=== PATIENT | female | born 1960 | race Hispanic/Latino ===

== ENCOUNTER 2024-05-09 14:38 | Observation (INO) | payer OTHER ==
[2024-05-09 16:56] LABS: PT Prothrombin Time 12.2 SECONDS (9.4-12.5); Protime INR 1.11
[2024-05-09 17:01] LABS: ALT/SGPT 16 U/L (13-56); Absolute Eosinophils 0.2 K/uL (0-0.5); Absolute Lymphocytes (CBC) 1.3 K/uL (0.7-4.9); Absolute Monocytes 0.6 K/uL (0.1-1.3); Absolute Neutrophil 5.2 K/uL (1.8-8.0); Albumin 2.7 g/dL (3.4-5.0); Albumin/Globulin Ratio 0.8 (1.1-1.8); Alkaline Phosphatase 64 U/L (45-117); Anion Gap 8.1 mEq/L (5.0-15.0); BUN Blood Urea Nitrogen 22 mg/dL (7-18); Basophils % 0.4 % (0-1.3); Bicarbonate 20 mEq/L (21-32); Bilirubin Total 0.4 mg/dL (0.2-1.0); Eosinophils % 3.1 % (0-4.4); Globulin 3.4 g/dL (2.3-3.5); Glomerular Filtration Rate 52 ml/min (=/>90); Glucose Level 88 mg/dL (74-106); Hematocrit 28.4 % (36.0-45.0); Hemoglobin 9.3 g/dL (12.0-15.0); Lymphocytes % 18.2 % (15.3-44.8); MCH 30.2 pg (27.0-35.0); MCHC 32.8 g/dL (32.0-36.0); MCV 91.9 fL (80-100); MPV 8.2 fL (7.6-11.3); Monocytes % 8.6 % (3.3-12.3); NT PRO-BNP 4217 pg/mL (<125); Neutrophils % 69.7 % (41.7-73.7); Nucleated Red Blood Cells % 0.2 % (0-0); Platelets 138 thou/uL (152-406); Potassium 5.1 mEq/L (3.5-5.1); Protein, Total 6.1 g/dL (6.4-8.2); RBC Red Blood Cell Count 3.09 M/uL (3.86-4.86); Sodium Level 139 mEq/L (136-145); Troponin High Sensitivity 6.6 pg/mL (<58.9)
[2024-05-09 17:04] LABS: AST/SGOT < 10 U/L (15-37); Bilirubin Direct < 0.2 mg/dL (0-0.2); Bilirubin Indirect, Calculated 0.2 mg/dL (0.2-0.8)
--- NOTE | 2024-05-09 17:22 | RAD REPORT ---
EXAM DESCRIPTION: Silvia Single View05/09/2024 4:46 pm CLINICAL HISTORY: Chest pain COMPARISON: 2014 FINDINGS: The lungs appear clear of acute infiltrate. The heart is normal size IMPRESSION: No acute abnormalities displayed
--- NOTE | 2024-05-09 17:33 | RAD REPORT ---
EXAM DESCRIPTION: CT - Head Brain Wo Cont - 05/09/2024 5:05 pm CLINICAL HISTORY: Dizziness. Fall. COMPARISON: None TECHNIQUE: Computed axial tomography of the head was obtained. IV contrast was not requested. All CT scans are performed using dose optimization technique as appropriate and may include automated exposure control or mA/KV adjustment according to patient size. FINDINGS: An intracranial bleed is not seen The ventricles are normal in caliber No extra-axial fluid collection is noted. Right cervical Francis aneurysm repair. Artifact from the metal obscures portions of the brain. Ventricles are normal caliber. No extra-axial fluid collections seen. An acute intracranial bleed visualized. Fluid within the sinuses/ mastoids is not seen. IMPRESSION: No acute gross intracranial abnormality noted
--- NOTE | 2024-05-09 18:10 | EDPHYS ---
Physician Documentation [facility] Name: Leisa Duff Age: 64 yrs Sex: Female : 1960 Arrival Date: 05/09/2024 Time: 14:38 Bed 17 Private MD: ED Physician Rogelio Miller HPI: 05/09 17:11 This 64 yrs old Female presents to ER via EMS with complaints of Pain All Over.gb1 17:11 64-year-old female with she has pain all over her body. Patient states that she fell gb1 for the last 3 days she felt more dizzy and lightheaded she denies any head strike or loss of consciousness but she states that she feels more unsteady on her feet. She has a history of an aneurysm, diabetes and hypertension.. 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 - Infectious Disease History:: Denies. - Social history:: Smoking status: Patient denies any tobacco usage or history of. Exam: 17:11 Constitutional: This is a well developed, well nourished patient who is awake, alert, gb1 and in no acute distress. Head/Face: Normocephalic, atraumatic. Eyes: Pupils equal round and reactive to light, extra-ocular motions intact. Lids and lashes normal. Conjunctiva and sclera are non-icteric and not injected. Cornea within normal limits. Periorbital areas with no swelling, redness, or edema. ENT: Nares patent. No nasal discharge, no septal abnormalities noted. Tympanic membranes are normal and external auditory canals are clear. Oropharynx with no redness, swelling, or masses, exudates, or evidence of obstruction, uvula midline. Mucous membranes moist. Neck: Trachea midline, no thyromegaly or masses palpated, and no cervical lymphadenopathy. Supple, full range of motion without nuchal rigidity, or vertebral point tenderness. No Meningismus. Chest/axilla: Normal chest wall appearance and motion. Nontender with no deformity. No lesions are appreciated. Cardiovascular: Regular rate and rhythm with a normal S1 and S2. No gallops, murmurs, or rubs. Normal PMI, no JVD. No pulse deficits. Respiratory: Lungs have equal breath sounds bilaterally, clear to auscultation and percussion. No rales, rhonchi or wheezes noted. No increased work of breathing, no retractions or nasal flaring. Abdomen/GI: Soft, non-tender, with normal bowel sounds. No distension or tympany. No guarding or rebound. No evidence of tenderness throughout. Back: No spinal tenderness. No costovertebral tenderness. Full range of motion. Skin: Warm, dry with normal turgor. Normal color with no rashes, no lesions, and no evidence of cellulitis. MS/ Extremity: Pulses equal, no cyanosis. Neurovascular intact. Full, normal range of motion. Neuro: Awake and alert, GCS 15, oriented to person, place, time, and situation. Cranial nerves II-XII grossly intact. Motor strength 5/5 in all extremities. Sensory grossly intact. Cerebellar exam normal. Normal gait. Vital Signs: 14:59 BP 147 / 92; Pulse 76; Resp 18; Temp 97.9; Weight 68.04 kg; Height 5 ft. 2 in. ; Pain ll1 10/10; 16:06 BP 137 / 86; Pulse 70; Resp 16; Pulse Ox 99% on R/A; Pain 10/10; al5 16:30 BP 130 / 79; Pulse 72; Resp 16; Pulse Ox 100% on R/A; al5 17:00 BP 127 / 95; Pulse 67; Resp 17; Pulse Ox 100% on R/A; al5 18:00 BP 127 / 77; Pulse 70; Resp 18; Pulse Ox 98% on R/A; al5 18:30 BP 121 / 80; Pulse 70; Resp 18; Pulse Ox 99% on R/A; al5 19:33 BP 122 / 71; Pulse 67; Resp 18; Temp 98.3; Pulse Ox 97% ; Pain 9/10; rg5 21:44 BP 152 / 91; Pulse 72; Resp 18; Temp 98.3; Pulse Ox 96% on R/A; Pain 10/10; bm8 14:59 Body Mass Index 27.44 (68.04 kg, 157.48 cm) ll1 14:59 Pain Scale: Adult ll1 16:06 Pain Scale: Adult al5 19:33 Pain Scale: Adult rg5 21:44 Pain Scale: Adult bm8 [place] Coma Score: 19:33 Eye Response: spontaneous(4). Motor Response: obeys commands(6). Verbal Response: rg5 oriented(5). Total: 15. 21:44 Eye Response: spontaneous(4). Motor Response: obeys commands(6). Verbal Response: bm8 oriented(5). Total: 15. MDM: 15:53 Patient medically screened. gb1 17:11 Data reviewed: vital signs, nurses notes, lab test result(s), radiologic studies, CT gb1 scan. 18:09 ED course: 64-year-old female status post questionable near syncope versus gb1 syncope with collapse episodes x 3 over the last couple days. She has history of a aneurysm status post clipping coiled and diabetes with hypertension, CT brain is normal today.. Patient has a BNP today of greater than 4000 no signs of decompensated heart failure or pulmonary edema. She has a negative troponin and otherwise chest x-ray is negative for any focal infiltrates. I will admit her for observation for evaluation for cardiology consultation with consideration of her echocardiogram.. 05/09 16:26 Order name: Basic Metabolic Panel; Complete Time: 17:12 05/09 16:26 Order name: CBC with Diff; Complete Time: 17:03 [facility] 05/09 16:26 Order name: LFT's; Complete Time: 17:12 [facility] 05/09 16:26 Order name: NT PRO-BNP; Complete Time: 17:12 05/09 16:26 Order name: PT-INR; Complete Time: 17:03 05/09 16:26 Order name: Troponin HS; Complete Time: 17:12 05/09 16:48 Order name: Glucose, Ancillary Testing; Complete Time: 17:03 [facility] 05/09 17:03 Order name: UDS [facility] 05/09 17:03 Order name: Urinalysis W/Microscopic 05/09 18:40 Order name: Urinalysis w/ reflexes [facility] 05/09 18:40 Order name: CBC with Automated Diff [facility] 05/09 18:40 Order name: CBC with Automated Diff [facility] 05/09 18:40 Order name: Comprehensive Metabolic Panel [facility] 05/09 18:40 Order name: Comprehensive Metabolic Panel [facility] 05/09 18:40 Order name: Troponin High Sensitivity [facility] 05/09 18:40 Order name: Troponin High Sensitivity [facility] 05/09 18:40 Order name: Troponin High Sensitivity [facility] 05/09 18:40 Order name: Troponin High Sensitivity [facility] 05/09 16:26 Order name: XRAY Chest (1 view); Complete Time: 17:37 gb1 05/09 16:27 Order name: CT Head Brain wo Cont; Complete Time: 17:37 gb1 05/09 18:43 Order name: Echo with Doppler [facility] 05/09 16:26 Order name: Cardiac monitoring; Complete Time: 16:56 gb1 05/09 16:26 Order name: EKG - Nurse/Tech; Complete Time: 18:14 gb1 05/09 16:26 Order name: IV Saline Lock; Complete Time: 16:56 gb1 05/09 16:26 Order name: Labs collected and sent; Complete Time: 16:56 gb1 05/09 16:26 Order name: O2 Per Protocol; Complete Time: 16:56 1 05/09 16:26 Order name: O2 Sat Monitoring; Complete Time: 16:56 gb Administered Medications: 18:43 Drug: Furosemide IVP 40 mg IVP once; give over 2 minutes Route: IVP; Site: right al5 antecubital; 19:18 Follow up: Response: No adverse reaction al5 Disposition Summary: 05/09/24 18:09 Hospitalization Ordered Notes: Hospitalization Status: Inpatient Admission [facility] Provider: Enrique Teran [facility] Location: Telemetry/MedSurg (observation) [facility] Condition: Stable [facility] Problem: new [facility] Symptoms: are unchanged [facility] Bed/Room Type: Standard [facility] Room Assignment: 208(05/09/24 20:04) kl Diagnosis - Syncope Near [facility] Forms: - Medication Reconciliation Form 1 - SBAR form [facility] - Leadership Thank You Letter [facility] Signatures: Dispatcher [employer] Annette Vick RN RN kl Lewis, Lynsay, RN RN ll1 Isidra Blandon MD MD 1 Alondra Arcos RN RN al5 Corrections: (The following items were deleted from the chart) 16:27 16:27 Chest Single View+RAD.RAD.BRZ ordered. [facility] 20:04 18:09 gb1 kl
--- NOTE | 2024-05-09 18:10 | ER ---
Nurse's Notes [facility] Name: Leisa Duff Age: 64 yrs Sex: Female : 1960 Arrival Date: 05/09/2024 Time: 14:38 Bed 17 Private MD: Diagnosis: Syncope Near Presentation: 05/09 14:59 Chief complaint: Patient states: Falls at least once weekly for 3 weeks. Lightheaded, ll1 weak, leg pains, "falling out" episode last night. Fell onto L side. Coronavirus screen: Client denies travel out of the [place] in the last 14 days. At this time, the client does not indicate any symptoms associated with coronavirus-19. Ebola Screen: Patient denies travel to an Ebola-affected area in the 21 days before illness onset. Initial Sepsis Screen: Does the patient meet any 2 criteria? No. Patient's initial sepsis screen is negative. Does the patient have a suspected source of infection? No. Patient's initial sepsis screen is negative. Risk Assessment: Do you want to hurt yourself or someone else? Patient reports no desire to harm self or others. Onset of symptoms was April 18, 2024. 14:59 Method Of Arrival: Ambulatory ll1 14:59 Acuity: KATHIA 3 ll1 14:59 Method Of Arrival: EMS: [facility] ll1 Triage Assessment: 15:02 General: Appears uncomfortable, Behavior is calm, cooperative, appropriate for age. ll1 Pain: Complains of pain in right leg and left leg Quality of pain is described as aching, throbbing. Cardiovascular: Reports chest pain. Musculoskeletal: Reports pain in right leg and left leg falls the past three weeks. 15:02 General: Reports fatigue for. Neuro: Reports dizziness, weakness. 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 - Infectious Disease History:: Denies. - Social history:: Smoking status: Patient denies any tobacco usage or history of. Screenin:10 [facility] ED Fall Risk Assessment (Adult) History of falling in the last 3 months, al5 including since admission Yes- physiologic fall (2 pts) Confusion or Disorientation No (0 pts) Intoxicated or Sedated No (0 pts) Impaired Gait Yes (1 pt) Mobility Assist Device Used Yes (1 pt) Altered Elimination No (0 pt) Score/Fall Risk Level 3 or more points = High Risk Oriented to surroundings, Maintained a safe environment, Hourly rounding (assess needs \\T\\ fall precautionary measures) done, Used ambulatory aids as needed (educated on \\T\\ assisted with), Apply high fall risk patient identification: yellow non skid footwear/ fall signage, Remained with patient while ambulating. Abuse screen: Denies threats or abuse. Denies injuries from another. Abuse screen: Denies threats or abuse. Denies injuries from another. Nutritional screening: No deficits noted. Tuberculosis screening: No symptoms or risk factors identified. Assessment: 16:06 General: Appears in no apparent distress. Behavior is calm, cooperative. Pain: al5 Complains of pain in headache, L sided pain post fall, bilateral chest pain. Pain currently is 10 out of 10 on a pain scale. Pain began last night after fall. Is continuous. Neuro: Level of Consciousness is awake, alert, obeys commands, Oriented to person, place, time, situation, Supervisor Of Way are equal bilaterally Gait is unsteady, Speech is normal, Facial symmetry appears normal. Cardiovascular: Patient's skin is warm and dry. Rhythm is sinus rhythm. Respiratory: Airway is patent Trachea midline Respiratory effort is even, unlabored, Respiratory pattern is regular, symmetrical. GI: pt has hx of hernia, active hernia prior to arrival. Derm: Skin is intact, Skin is pink, warm \\T\\ dry. normal, Skin temperature is warm. Musculoskeletal: Capillary refill < 3 seconds, in bilateral fingers. toes. Reports pain in head, neck, chest, and L side extremities. 18:00 Reassessment: Patient appears in no apparent distress at this time. No changes from al5 previously documented assessment. Patient and/or family updated on plan of care and expected duration. Pain level reassessed. Patient is alert, oriented x 3, equal unlabored respirations, skin warm/dry/pink. 18:30 Reassessment: Patient appears in no apparent distress at this time. No changes from al5 previously documented assessment. Patient and/or family updated on plan of care and expected duration. Pain level reassessed. Patient is alert, oriented x 3, equal unlabored respirations, skin warm/dry/pink. 21:44 Reassessment: Patient appears in no apparent distress at this time. Patient and/or bm8 family updated on plan of care and expected duration. Pain level reassessed. Patient is alert, oriented x 3, equal unlabored respirations, skin warm/dry/pink. Reassessment: pt is resting with eyes closed breathing is even unlabored. Easily rousable. reports pain everywhere. Pain: Complains of pain in "everywhere" Pain currently is 10 out of 10 on a pain scale. Vital Signs: 14:59 BP 147 / 92; Pulse 76; Resp 18; Temp 97.9; Weight 68.04 kg; Height 5 ft. 2 in. ; Pain ll1 10/10; 16:06 BP 137 / 86; Pulse 70; Resp 16; Pulse Ox 99% on R/A; Pain 10/10; al5 16:30 BP 130 / 79; Pulse 72; Resp 16; Pulse Ox 100% on R/A; al5 17:00 BP 127 / 95; Pulse 67; Resp 17; Pulse Ox 100% on R/A; al5 18:00 BP 127 / 77; Pulse 70; Resp 18; Pulse Ox 98% on R/A; al5 18:30 BP 121 / 80; Pulse 70; Resp 18; Pulse Ox 99% on R/A; al5 19:33 BP 122 / 71; Pulse 67; Resp 18; Temp 98.3; Pulse Ox 97% ; Pain 9/10; rg5 21:44 BP 152 / 91; Pulse 72; Resp 18; Temp 98.3; Pulse Ox 96% on R/A; Pain 10/10; bm8 14:59 Body Mass Index 27.44 (68.04 kg, 157.48 cm) ll1 14:59 Pain Scale: Adult ll1 16:06 Pain Scale: Adult al5 19:33 Pain Scale: Adult rg5 21:44 Pain Scale: Adult bm8 Vitals: 19:33 Cardiac Rhythm Assessment Regular Sinus rhythm. rg5 [place] Coma Score: 19:33 Eye Response: spontaneous(4). Motor Response: obeys commands(6). Verbal Response: rg5 oriented(5). Total: 15. 21:44 Eye Response: spontaneous(4). Motor Response: obeys commands(6). Verbal Response: bm8 oriented(5). Total: 15. ED Course: 14:45 Patient arrived in ED. mr 14:57 Isidra Blandon MD is Attending Physician. gb1 15:01 Triage completed. ll1 15:02 Arm band placed on. ll1 15:55 Alondra Arcos RN is Primary Nurse. al5 16:11 Patient has correct armband on for positive identification. Fall risk band placed. Bed al5 in low position. Call light in reach. Side rails up X2. Provided Education on: fall risk education, processes and procedures.. 16:12 Inserted saline lock: in right antecubital area, using aseptic technique. ,using al5 aseptic technique. done by ems prior to arrival. 16:48 XRAY Chest (1 view) In Process Unspecified. EDMS 17:06 CT Head Brain wo Cont In Process Unspecified. EDMS 18:09 Enrique Teran MD is Hospitalizing Provider. gb1 18:14 Urine collected: straight cath specimen, clear, Amount Returned: 250mL. cm10 18:14 Speci-cath kit inserted, using sterile technique, 14 Fr., specimen obtained. returned cm10 clear yellow urine. Patient tolerated well. 18:14 Urinalysis W/Microscopic Sent. cm10 18:14 UDS Sent. cm10 18:14 EKG done, by ED staff, reviewed by Isidra Blandon MD. cm10 19:17 Report given to LLUVIA Harris. al5 19:17 No provider procedures requiring assistance completed. al5 19:33 Client placed on continuous cardiac and pulse oximetry monitoring. NIBP monitoring rg5 applied. monitoring analyst on. Pulse ox on. NIBP on. 19:33 Patient admitted, IV remains in place. rg5 21:28 Attending Physician role handed off by Isidra Blandon MD shirley 21:28 Rogelio Miller MD is Attending Physician. shirley Administered Medications: 18:43 Drug: Furosemide IVP 40 mg IVP once; give over 2 minutes Route: IVP; Site: right al5 antecubital; 19:18 Follow up: Response: No adverse reaction al5 Medication: 19:33 VIS not applicable for this client. rg5 Outcome: 18:09 Decision to Hospitalize by Provider. gb1 21:44 Admitted to Med/surg accompanied by nurse, via stretcher, room 208, bm8 21:44 Condition: stable 21:44 Instructed on the need for admit, Demonstrated understanding of follow-up care, 21:46 Patient left the ED. bm8 Signatures: Dispatcher [employer] EDRogelio Wells MD MD cha Rivera, Mary, Reg Reg Flory Mitchellbeto, RN RN ll1 July Roman, RN RN cm10 Isidra Blandon MD MD gb1 Steven Art, RN RN bm8 Denzel Guerrero RN RN rg5 Alondra Arcos RN RN al5 Corrections: (The following items were deleted from the chart) 15:02 14:59 BP 147 / 92; Pulse 76bpm; Resp 18bpm; Temp 97.9F; Pain 10/10, Adult; ll1 ll1 16:26 15:02 General: Appears uncomfortable, Behavior is calm, cooperative, appropriate for ll1 age, ll1
[2024-05-09 18:29] LABS: Specific Gravity 1.019 (1.005-1.030); Sqamous Epithelial <5 /HPF (None Seen); Urine Bacteria None Seen /HPF (<20); Urine Bilirubin NEGATIVE (Negative); Urine Blood Negative (Negative); Urine Clarity Clear (Clear); Urine Color Light-Yellow (Yellow); Urine Crystals Unidentified Few /HPF (None Seen); Urine Culture Reflex Order NOT NEEDED; Urine Glucose NEGATIVE (Negative); Urine Ketones NEGATIVE (Negative); Urine Micro Reflex YN NO BILL MICROSCOPIC; Urine Nitrite NEGATIVE (Negative); Urine Protein 1+ (Negative); Urine RBC <5 /HPF (None Seen); Urine Urobilinogen Normal (Normal); Urine WBC <5 /HPF (<5)
[2024-05-09 18:32] LABS: Barbiturates NEGATIVE (NEGATIVE); Benzodiazepines NEGATIVE (NEGATIVE); Cocaine NEGATIVE (NEGATIVE); METHAMPHETAM POSITIVE (NEGATIVE); Methadone NEGATIVE (NEGATIVE); Opiates NEGATIVE (NEGATIVE); Phencyclidine NEGATIVE (NEGATIVE); THC Cannibis POSITIVE (NEGATIVE)
[2024-05-09] MEDS ORDERED: FUROSEMIDE 40 MG/4 ML VIAL ONE (18:32)
[2024-05-09] MEDS ORDERED: ONDANSETRON 4 MG/2 ML VIAL IV PRN (18:36)
[2024-05-09] MEDS ORDERED: ACETAMINOPHEN 325 MG TABLET PO PRN (18:36)
--- NOTE | 2024-05-09 18:36 | P.HP ---
Certification for Inpatient Patient admitted to: Observation With expected LOS: <2 Midnights Practitioner: I am a practitioner with admitting privileges, knowledge of patient current condition, hospital course, and medical plan of care. Services: Services provided to patient in accordance with Admission requirements found in Title 42 Section 412.3 of the Code of Federal Regulations Patient History Date of Service: 05/09/24 Reason for admission: Syncope History of Present Illness: 64 yrs old Female with past medical history of diabetes, hypertension, aneurysm, history of hernia repair came to ER with generalized body pain. Started 3 to 4 days ago after of having a fall. Patient states that she fell off the ground 3 days ago when she fell dizzy and lightheaded. Complains of pain in upper and lower extremities. Denies any loss of consciousness. No palpitations. No fever or chills. No sick contacts. Denies any nausea vomiting or diarrhea. Patient was assessed in the ER hide he was admitted for syncopal workup and also found to have elevated BNP and positive urine drug screen with amphetamines and THC Allergies NKDA Allergy (Uncoded 10/29/15 15:50) Unknown No Known Allergies Allergy (Uncoded 09/11/17 14:46) Unknown Home medications list reviewed: Yes - Past Medical/Surgical History Diabetic: Yes Past Medical History: Reviewed- Non-Contributory -: DM, Aneurysm , HTN Past Surgical History: Reviewed- Non-Contributory -: Hernia - Family History Family History: Reviewed- Non-Contributory - Social History Smoking Status: Current some day smoker Review of Systems 10-point ROS is otherwise unremarkable Physical Examination - Vital Signs Temperature: 97.9 F Blood Pressure: 146/90 Pulse: 78 Respirations: 18 Pulse Ox (%): 92 - Physical Exam General: Alert, Oriented x3, Cooperative, Mild distress HEENT: Atraumatic, Normocephalic Neck: Supple, 2+ carotid pulse no bruit Respiratory: Clear to auscultation bilaterally, Normal air movement Cardiovascular: Normal pulses, Regular rate/rhythm, Edema Capillary refill: <2 Seconds Gastrointestinal: Soft and benign, W/out hepatosplenomegaly, No tenderness Musculoskeletal: No clubbing, No swelling Integumentary: No rashes Neurological: Normal strength at 5/5 x4 extr, Cranial nerves 3-12 intact, Normal reflexes 2+ Lymphatics: No axilla or inguinal lymphadenopathy - Studies Laboratory Data (last 24 hrs) 05/09/24 05/09/24 05/09/24 16:36 16:36 16:36 WBC 7.40 Hgb 9.3 L Hct 28.4 L Plt Count 138 L PT 12.2 INR 1.11 Sodium 139 Potassium 5.1 BUN 22 H Creatinine 1.17 H Glucose 88 Total Bilirubin 0.4 AST < 10 L ALT 16 Alkaline Phosphatase 64 Assessment and Plan - Problems (Diagnosis) (1) Syncope Current Visit: Yes Status: Acute Plan: Syncope Syncopal workup CT head showed no acute changes Will get a carotid Doppler Elevated BNP Started on diuresis Will get an echocardiogram Monitor closely Hypertension Antihypertensives titrated Continue home medications and titrate as needed Hyperlipidemia Continue statin Diabetes Insulin sliding scale Accu-Chek before every meal and at bedtime Anemia of chronic disease Monitor H&H closely No overt bleeding at this time Substance abuse UDS positive for methamphetamine and THC Advise cessation GI/DVT prophylaxis Advanced directive full code Discharge Plan: Home Plan to discharge in: 48 Hours - Advance Directives Does patient have a Living Will: No Does patient have a Durable POA for Healthcare: No - Code Status/Comfort Care Code Status: Full Code Time Spent Managing Pts Care (In Minutes): 48
[2024-05-09 22:35] VITALS: O2SAT 96
[2024-05-09] MEDS: MORPHINE 4 MG/ML SYR IV PRN (22:54)
[2024-05-10 01:57] VITALS: BMI 27.6
[2024-05-10 02:35] LABS: Absolute Eosinophils 0.2 K/uL (0-0.5); Absolute Lymphocytes (CBC) 1.5 K/uL (0.7-4.9); Absolute Monocytes 0.5 K/uL (0.1-1.3); Absolute Neutrophil 4.1 K/uL (1.8-8.0); Basophils % 0.4 % (0-1.3); Eosinophils % 3.1 % (0-4.4); Hematocrit 30.2 % (36.0-45.0); Hemoglobin 10.1 g/dL (12.0-15.0); Lymphocytes % 23.3 % (15.3-44.8); MCH 30.4 pg (27.0-35.0); MCHC 33.4 g/dL (32.0-36.0); Monocytes % 7.4 % (3.3-12.3); Neutrophils % 65.8 % (41.7-73.7); Nucleated Red Blood Cells % 0.1 % (0-0); Platelets 146 thou/uL (152-406); RBC Red Blood Cell Count 3.31 M/uL (3.86-4.86); Red Cell Distribution Width 14.6 % (12.1-15.2)
[2024-05-10 02:56] LABS: Albumin 2.7 g/dL (3.4-5.0); Albumin/Globulin Ratio 0.8 (1.1-1.8); Anion Gap 7.4 mEq/L (5.0-15.0); Bilirubin Total 0.3 mg/dL (0.2-1.0); Globulin 3.5 g/dL (2.3-3.5); Potassium 4.4 mEq/L (3.5-5.1); Protein, Total 6.2 g/dL (6.4-8.2)
[2024-05-10 05:02] LABS: Specific Gravity 1.009 (1.005-1.030); Sqamous Epithelial <5 /HPF (None Seen); Urine Bacteria None Seen /HPF (<20); Urine Bilirubin NEGATIVE (Negative); Urine Blood Negative (Negative); Urine Clarity Clear (Clear); Urine Color Colorless (Yellow); Urine Culture Reflex Order NOT NEEDED; Urine Glucose NEGATIVE (Negative); Urine Ketones NEGATIVE (Negative); Urine Microscopic Reflex YN ORDER UMIC; Urine Nitrite NEGATIVE (Negative); Urine Protein NEGATIVE (Negative); Urine RBC <5 /HPF (None Seen); Urine Urobilinogen Normal (Normal); Urine WBC <5 /HPF (<5); Urine WBC Clump Rare /HPF (None Seen)
[2024-05-10] MEDS: HYDROCODONE/APAP 7.5/325 MG TAB PO PRN (08:06)
[2024-05-10] MEDS: ENOXAPARIN 40 MG/0.4 ML SQ SCH (08:06)
--- NOTE | 2024-05-10 11:10 | P.PN ---
Date of Service: 05/10/24 admitted with syncopal episode, fall, Review of Systems 10-point ROS is otherwise unremarkable Physical Examination - Vital Signs reviewed - Physical Exam General: Alert, Oriented x3, Cooperative, Mild distress HEENT: Atraumatic, Normocephalic Neck: Supple, 2+ carotid pulse no bruit Respiratory: Clear to auscultation bilaterally, Normal air movement Cardiovascular: Normal pulses, Regular rate/rhythm, Edema Capillary refill: <2 Seconds Gastrointestinal: Soft and benign, W/out hepatosplenomegaly, No tenderness Musculoskeletal: No clubbing, No swelling Integumentary: No rashes Neurological: Normal strength at 5/5 x4 extr, Cranial nerves 3-12 intact, Normal reflexes 2+ Lymphatics: No axilla or inguinal lymphadenopathy Assessment and Plan - Problems (Diagnosis) Syncope Syncopal workup CT head showed no acute changes Will get a carotid Doppler Echo ordered Elevated BNP Started on diuresis Will get an echocardiogram Monitor closely Hypertension Antihypertensives titrated Continue home medications and titrate as needed Hyperlipidemia Continue statin Diabetes Insulin sliding scale Accu-Chek before every meal and at bedtime Anemia of chronic disease Monitor H&H closely No overt bleeding at this time Substance abuse UDS positive for methamphetamine and THC Advise cessation GI/DVT prophylaxis Advanced directive full code Discharge Plan: Home Plan to discharge in: 48 Hours - Advance Directives Does patient have a Living Will: No Does patient have a Durable POA for Healthcare: No
[2024-05-10 12:34] VITALS: BP 119/58; TEMP 97.3
--- NOTE | 2024-05-12 16:04 | P.DS ---
Admission Date: 05/09/24 Discharge Date: 05/10/24 Disposition: ROUTINE DISCHARGE Discharge Condition: GOOD Reason for Admission: Syncope Brief History of Present Illness: 64 yrs old Female with past medical history of diabetes, hypertension, aneurysm, history of hernia repair came to ER with generalized body pain. Started 3 to 4 days ago after of having a fall. Patient states that she fell off the ground 3 days ago when she fell dizzy and lightheaded. Complains of pain in upper and lower extremities. Denies any loss of consciousness. No palpitations. No fever or chills. No sick contacts. Denies any nausea vomi ting or diarrhea. Patient was assessed in the ER hide he was admitted for syncopal workup and also found to have elevated BNP and positive urine drug screen with amphetamines and THC - Physical Exam General: Alert, Oriented x3, Cooperative, HEENT: Atraumatic, Normocephalic Neck: Supple, 2+ carotid pulse no bruit Respiratory: Clear to auscultation bilaterally, Normal air movement Cardiovascular: Normal pulses, Regular rate/rhythm, Edema Capillary refill: <2 Seconds Gastrointestinal: Soft and benign, W/out hepatosplenomegaly, No tenderness Musculoskeletal: No clubbing, No swelling Integumentary: No rashes Neurological: Normal strength at 5/5 x4 extr, Cranial nerves 3-12 intact, Normal reflexes 2+ Lymphatics: No axilla or inguinal lymphadenopathy Hospital Course: 64 yrs old Female with past medical history of diabetes, hypertension, aneurysm, history of hernia repair came to ER with generalized body pain. Was noted to have syncopal episode., Elevated BNP, Condition improved with diuresis, CT of the head IMPRESSION: No acute gross intracranial abnormality noted, Patient tolerating diet, stable for discharge to home with follow-up appointment with primary care physician. PROBLEM: Syncopal episode, CT of the head negative, chest x-ray no acute abnormality,, UA was normal, Urine drug screen positive for benzos, marijuana, educated on cessation Complain of pain, discharged home with hydrocodone Continue home medicines as previously prescribed GOAL: Clear understanding of disease process INSTRUCTIONS: Physician Discharge Instructions: -Follow-up with PCP in 1 to 2 weeks -Please call Dr. Guerra at [phone] if any questions regarding hospital stay -Please call nursing station at [phone] if any nursing or medication questions -Return to the emergency room if symptoms worsen Diet: ADA, low sodium Activity: Fall precautions Vital Signs/Physical Exam: Temp Pulse Resp BP Pulse Ox 97.3 F 70 16 119/58 L 96 05/10/24 12:00 05/10/24 12:00 05/10/24 12:00 05/10/24 12:00 05/10/24 12:00 Laboratory Data at Discharge: WBC 6.30 thou/uL (4.3-10.9) 05/10/24 02:26 Hgb 10.1 g/dL (12.0-15.0) L D 05/10/24 02:26 Hct 30.2 % (36.0-45.0) L 05/10/24 02:26 Plt Count 146 thou/uL (152-406) L 05/10/24 02:26 PT 12.2 SECONDS (9.4-12.5) 05/09/24 16:36 INR 1.11 05/09/24 16:36 Sodium 139 mEq/L (136-145) 05/10/24 02:26 Potassium 4.4 mEq/L (3.5-5.1) D 05/10/24 02:26 BUN 22 mg/dL (7-18) H 05/10/24 02:26 Creatinine 1.32 mg/dL (0.55-1.02) H 05/10/24 02:26 Glucose 156 mg/dL (74-106) H 05/10/24 02:26 Total Bilirubin 0.3 mg/dL (0.2-1.0) 05/10/24 02:26 AST 11 U/L (15-37) L 05/10/24 02:26 ALT 16 U/L (13-56) 05/10/24 02:26 Alkaline Phosphatase 71 U/L (45-117) 05/10/24 02:26 Home Medications: Hydrocodone 10/APAP 325 [[place] 10/325] 1 tab PO Q6H PRN #30 tab 05/10/24 RX: Atenolol [Tenormin] 100 mg PO DAILY 05/10/24 RX: Fluoxetine HCl 10 mg PO DAILY 05/10/24 RX: Gabapentin 300 mg PO BID 05/10/24 RX: Metformin HCl 1,000 mg PO BID 05/10/24 RX: Pravastatin Sodium 20 mg PO DAILY 05/10/24 New Medications: Hydrocodone 10/APAP 325 [[place] 10/325] 1 tab PO Q6H PRN #30 tab PRN Reason: Pain Physician Discharge Instructions: -DC IV and DC home -Follow-up with PCP in 1 to 2 weeks -Follow-up with Cardiology in 1 to 2 weeks -Please call Dr. Guerra at [phone] if any questions regarding hospital stay -Please call nursing station at [phone] if any nursing or medication questions -Return to the emergency room if symptoms worsen Diet: AHA Activity: Fall precautions Followup: Kaleigh Manjarrez MD [Primary Care Provider] - Time spent managing pt's care (in minutes): 45
--- NOTE | 2024-05-13 07:19 | ECHO ---
HEIGHT: 5 ft 2 in WEIGHT: 151 lb 6.4 oz DATE OF STUDY: 05/10/[address]: Bashir Teran DO 2-DIMENSIONAL: YES M.MODE: YES DOPPLER: YES COLOR FLOW: YES TDS: PORTABLE: YES DEFINITY: BUBBLE STUDY: DIAGNOSIS: CONGESTIVE HEART FAILURE CARDIAC HISTORY: CATHERIZATION: SURGERY: PROSTHETIC VALVE: PACEMAKER: MEASUREMENTS (cm) DIASTOLIC (NORMALS) SYSTOLIC (NORMALS) IVSd 1.0 (0.6-1.2) LA Diam 2.8 (1.9-4.0) LVEF 60-65% LVIDd 3.8 (3.5-5.7) LVIDs 2.4 (2.0-3.5) %FS 37% LVPWd 1.0 (0.6-1.2) Ao Diam 3.0 (2.0-3.7) 2 DIMENSIONAL ASSESSMENT: RIGHT ATRIUM: NORMAL LEFT ATRIUM: NORMAL RIGHT VENTRICLE: NORMAL LEFT VENTRICLE: NORMAL TRICUSPID VALVE: TRACE TRICUSPID REGURGITATION MITRAL VALVE: TRACE MITRAL REGURGITATION PULMONIC VALVE: NORMAL AORTIC VALVE: NORMAL PERICARDIAL EFFUSION: NONE AORTIC ROOT: NORMAL LEFT VENTRICULAR WALL MOTION: NORMAL DOPPLER/COLOR FLOW: NORMAL COMMENTS: 1. NORMAL LEFT VENTRICULAR SYSTOLIC FUNCTION, EJECTION FRACTION 60-65%, NORMAL WALL MOTION 2. NORMAL DIASTOLIC FUNCTION 3. NORMAL FILLING PRESSURE TECHNOLOGIST: JEANETTE MOORE
--- NOTE | 2024-05-13 14:24 | EKG ---
Test Date: 2024-05-09 Test Time: 17:58:37 [employer]: RAI MEASUREMENT RESULTS: Intervals: Rate: 101 TN: 204 QRSD: 78 QT: 354 QTc: 459 [place]: P: 67 TN: 204 QRS: 63 T: 65 INTERPRETIVE STATEMENTS: Sinus tachycardia Otherwise normal ECG No previous ECG available for comparison Electronically Signed On 05-13-24 14:16:47 CDT by Hernando Rollins
== END 2024-05-10 16:20 | disposition home or self-care (01) ==
LOC: ER 14:38 → 2ND 18:36
PROVIDERS: ADMIT Family Medicine; ATTEND Hospitalist
DX: R55 Syncope and collapse (principal); M79.605 Pain in left leg; M79.604 Pain in right leg; M79.602 Pain in left arm; M79.601 Pain in right arm; F12.10 Cannabis abuse, uncomplicated; F15.10 Other stimulant abuse, uncomplicated; E11.9 Type 2 diabetes mellitus without complications; I10 Essential (primary) hypertension; F17.210 Nicotine dependence, cigarettes, uncomplicated; E78.5 Hyperlipidemia, unspecified; D63.1 Anemia in chronic kidney disease; Z71.89 Other specified counseling
CPT/HCPCS: 93005; 93306; 85025 ×2; 81001 ×2; 80048; 36415; 85610; 82947 ×4; 80076; 84484 ×4; 80053; 83880; 80307; 70450; 71045; 96374; 99285; J1940; J1650; G0378 ×3